=== PATIENT | female | born 1970 | race Caucasian/White ===

== ENCOUNTER → 2016-12-11 | Outpatient (CLI) | payer OTHER ==
[2016-12-11 16:53] LABS: Basophils # (A) 0.1 k/uL (0-0.2); Basophils % (A) 1 %; CH 31.9; CHCM 34.9; Eosinophils # (A) 0.3 k/uL (0-0.7); Eosinophils % (A) 4 %; HCT 40.3 % (34.0-46.0); HGB 14.3 gm/dL (11.4-16.0); Luc # (Auto) 0.17; Luc % (Auto) 2; Lymphocytes # (A) 2.5 k/uL (1.0-4.8); Lymphocytes % (A) 33 %; MCH 32.5 pg (25.0-35.0); MCHC 35.4 g/dL (31.0-37.0); MCV 91.7 fL (80.0-100.0); Mean Platelet Volume 7.2; Monocytes # (A) 0.3 k/uL (0-1.0); Monocytes % (A) 4 %; Neutrophils # (A) 4.4 k/uL (1.3-7.7); Neutrophils % (A) 56 %; RBC 4.39 m/uL (3.80-5.40); RDW 13.3 % (11.5-15.5); WBC 7.8 k/uL (3.8-10.6); WBC (Perox) 8.34
== END | disposition home or self-care (01) ==
LOC: LABPAT 16:37
PROVIDERS: ATTEND Obstetrics & Gynecology
DX: Z01.812 Encounter for preprocedural laboratory examination (principal)
CPT/HCPCS: 36415; 85025

== ENCOUNTER 2017-12-20 10:10 | Emergency (ER) | payer BC ==
[2017-12-20] MEDS ORDERED: SODIUM CHLORIDE 0.9% 500 ML IV STA (10:58)
--- NOTE | 2017-12-20 11:01 | ED ---
General Adult HPI - General Chief complaint: Urogenital Stated complaint: UTI Time Seen by Provider: 12/20/17 10:20 Source: patient, RN notes reviewed Mode of arrival: ambulatory Limitations: no limitations - History of Present Illness Initial comments: This is a 47 her female presents emergency Department complaining of suprapubic pubic abdominal cramping. Patient also states she has hematuria. Patient states she was diagnosed with UTI on Wednesday and given Bactrim patient has been taking the Bactrim since. Patient states the symptoms have not improved. Patient states she also has some lower abdominal pain. Patient denies any CVA tenderness. Patient denies any fever chills or cough. Patient denies any injury or trauma. Patient denies any chest pain difficulty breathing shortness breath. Patient denies any other symptoms at this time. - Related Data Home Medications Medication Instructions Recorded Confirmed ALPRAZolam [Xanax] 0.25 mg PO BID PRN 12/20/17 12/20/17 SUMAtriptan SUCCINATE [Imitrex] 100 mg PO DAILY PRN 12/20/17 12/20/17 Sulfamethox-Tmp 800-160Mg [Bactrim 1 tab PO Q12H 12/20/17 12/20/17 DS 800-160 mg] Topiramate [Topamax] 25 mg PO DAILY 12/20/17 12/20/17 Previous Rx's Medication Instructions Recorded Fluconazole [Diflucan] 150 mg PO ONCE #10 tab 12/20/17 Nitrofurantoin Monohyd/M-Cryst 100 mg PO Q12HR #14 cap 12/20/17 [Macrobid] Allergies Allergy/AdvReac Type Severity Reaction Status Date / Time latex Allergy Itching Verified 12/20/17 10:31 Review of Systems ROS Statement: Those systems with pertinent positive or pertinent negative responses have been documented in the HPI. ROS Other: All systems not noted in ROS Statement are negative. Past Medical History Past Medical History: No Reported History History of Any Multi-Drug Resistant Organisms: None Reported Past Surgical History: Breast Surgery, Orthopedic Surgery Additional Past Surgical History / Comment(s): STATES BREAST REDUCTION AND IMPLANTS, "TUMMY TUCK", KNEE ARTHROSCOPY Past Anesthesia/Blood Transfusion Reactions: No Reported Reaction Past Psychological History: No Psychological Hx Reported Smoking Status: Never smoker Past Alcohol Use History: None Reported, Rare Past Drug Use History: None Reported - Past Family History Mother Family Medical History: Cancer Additional Family Medical History / Comment(s): LUNG General Exam - General Exam Comments Initial Comments: GENERAL: Patient is well-developed and well-nourished. Patient is nontoxic and well- hydrated and is in mild distress. ENT: Neck is soft and supple. No significant lymphadenopathy is noted. Oropharynx is clear. Moist mucous membranes. Neck has full range of motion without eliciting any pain. EYES: The sclera were anicteric and conjunctiva were pink and moist. Extraocular movements were intact and pupils were equal round and reactive to light. Eyelids were unremarkable. PULMONARY: Unlabored respirations. Good breath sounds bilaterally. No audible rales rhonchi or wheezing was noted. CARDIOVASCULAR: There is a regular rate and rhythm without any murmurs gallops or rubs. ABDOMEN: Suprapubic abdominal tenderness greater on the right than the left. No palpable organomegaly was noted. There is no palpable pulsatile mass. SKIN: Skin is clear with no lesions or rashes and otherwise unremarkable. NEUROLOGIC: Patient is alert and oriented x3. Cranial nerves II through XII are grossly intact. Motor and sensory are also intact. Normal speech, volume and content. Symmetrical smile. MUSCULOSKELETAL: Normal extremities with adequate strength and full range of motion. No lower extremity swelling or edema. No calf tenderness. LYMPHATICS: No significant lymphadenopathy is noted PSYCHIATRIC: Normal psychiatric evaluation. Limitations: no limitations Course Vital Signs 12/20/17 12/20/17 12/20/17 10:21 11:36 12:58 Temperature 97.9 F 98.2 F Pulse Rate 85 77 Respiratory 16 16 16 Rate Blood Pressure 122/83 125/78 O2 Sat by Pulse 98 98 Oximetry Medical Decision Making - Medical Decision Making Computed tomography scan shows no acute abnormality to explain the patient's pain. Patient received 2 g of Rocephin emergency department because the urine did have moderate bacteria and the patient was already diagnosed with a urinary tract infection prior to arrival. We did do a urine culture. - Lab Data Result diagrams: 12/20/17 11:40 12/20/17 11:40 Lab Results 12/20/17 12/20/17 12/20/17 Range/Units 11:40 11:40 11:40 WBC 8.4 (3.8-10.6) k/uL RBC 5.07 (3.80-5.40) m/uL Hgb 15.6 (11.4-16.0) gm/dL Hct 45.7 (34.0-46.0) % MCV 90.1 (80.0-100.0) fL MCH 30.8 (25.0-35.0) pg MCHC 34.1 (31.0-37.0) g/dL RDW 13.0 (11.5-15.5) % Plt Count 282 (150-450) k/uL Neutrophils % 63 % Lymphocytes % 27 % Monocytes % 5 % Eosinophils % 3 % Basophils % 1 % Neutrophils # 5.3 (1.3-7.7) k/uL Lymphocytes # 2.2 (1.0-4.8) k/uL Monocytes # 0.4 (0-1.0) k/uL Eosinophils # 0.2 (0-0.7) k/uL Basophils # 0.0 (0-0.2) k/uL Sodium 140 (137-145) mmol/L Potassium 4.9 (3.5-5.1) mmol/L Chloride 106 (98-107) mmol/L Carbon Dioxide 21 L (22-30) mmol/L Anion Gap 13 mmol/L BUN 20 H (7-17) mg/dL Creatinine 1.24 H (0.52-1.04) mg/dL Est GFR (CKD-EPI)AfAm 60 (>60 ml/min/1.73 sqM) Est GFR (CKD-EPI)NonAf 52 (>60 ml/min/1.73 sqM) Glucose 107 H (74-99) mg/dL Calcium 10.9 H (8.4-10.2) mg/dL Total Bilirubin 0.6 (0.2-1.3) mg/dL AST 22 (14-36) U/L ALT 30 (9-52) U/L Alkaline Phosphatase 104 (38-126) U/L Total Protein 7.4 (6.3-8.2) g/dL Albumin 4.4 (3.5-5.0) g/dL Urine Color Yellow Urine Appearance Cloudy H (Clear) Urine pH 5.5 (5.0-8.0) Ur Specific R[place] 1.019 (1.001-1.035) Urine Protein Trace H (Negative) Urine Glucose (UA) Negative (Negative) Urine Ketones Negative (Negative) Urine Blood Large H (Negative) Urine Nitrite Negative (Negative) Urine Bilirubin Negative (Negative) Urine Urobilinogen <2.0 (<2.0) mg/dL Ur Leukocyte Esterase Small H (Negative) Urine RBC 106 H (0-5) /hpf Urine WBC 11 H (0-5) /hpf Ur Squamous Epith Cells 12 H (0-4) /hpf Urine Bacteria Moderate H (None) /hpf Urine Mucus Rare H (None) /hpf Urine HCG, Qual (Not Detectd) 12/20/17 Range/Units 11:40 WBC (3.8-10.6) k/uL RBC (3.80-5.40) m/uL Hgb (11.4-16.0) gm/dL Hct (34.0-46.0) % MCV (80.0-100.0) fL MCH (25.0-35.0) pg MCHC (31.0-37.0) g/dL RDW (11.5-15.5) % Plt Count (150-450) k/uL Neutrophils % % Lymphocytes % % Monocytes % % Eosinophils % % Basophils % % Neutrophils # (1.3-7.7) k/uL Lymphocytes # (1.0-4.8) k/uL Monocytes # (0-1.0) k/uL Eosinophils # (0-0.7) k/uL Basophils # (0-0.2) k/uL Sodium (137-145) mmol/L Potassium (3.5-5.1) mmol/L Chloride (98-107) mmol/L Carbon Dioxide (22-30) mmol/L Anion Gap mmol/L BUN (7-17) mg/dL Creatinine (0.52-1.04) mg/dL Est GFR (CKD-EPI)AfAm (>60 ml/min/1.73 sqM) Est GFR (CKD-EPI)NonAf (>60 ml/min/1.73 sqM) Glucose (74-99) mg/dL Calcium (8.4-10.2) mg/dL Total Bilirubin (0.2-1.3) mg/dL AST (14-36) U/L ALT (9-52) U/L Alkaline Phosphatase (38-126) U/L Total Protein (6.3-8.2) g/dL Albumin (3.5-5.0) g/dL Urine Color Urine Appearance (Clear) Urine pH (5.0-8.0) Ur Specific R[place] (1.001-1.035) Urine Protein (Negative) Urine Glucose (UA) (Negative) Urine Ketones (Negative) Urine Blood (Negative) Urine Nitrite (Negative) Urine Bilirubin (Negative) Urine Urobilinogen (<2.0) mg/dL Ur Leukocyte Esterase (Negative) Urine RBC (0-5) /hpf Urine WBC (0-5) /hpf Ur Squamous Epith Cells (0-4) /hpf Urine Bacteria (None) /hpf Urine Mucus (None) /hpf Urine HCG, Qual Not Detected (Not Detectd) Disposition Clinical Impression: Hemorrhagic cystitis Disposition: HOME SELF-CARE Condition: Good Instructions: Urinary Tract Infection in Women (ED) Prescriptions: Fluconazole [Diflucan] 150 mg PO ONCE #10 tab Nitrofurantoin Monohyd/M-Cryst [Macrobid] 100 mg PO Q12HR #14 cap Is patient prescribed a controlled substance at d/c from ED?: No Referrals: Leah Ivey MD [Primary Care Provider] - 1-2 days
[2017-12-20 11:49] LABS: Appearance,Urine Cloudy (Clear); Bacteria,Urine Moderate /hpf; Bilirubin,Urine Negative (Negative); Blood,Urine Large (Negative); Color,Urine Yellow; Glucose,Urine (UA) Negative (Negative); Ketones,Urine Negative (Negative); Leukocyte Esterase,Urine Small (Negative); Mucus,Urine Rare /hpf; Nitrite,Urine Negative (Negative); PH, Urine 5.5 (5.0-8.0); Protein,Urine Trace (Negative); RBC,Urine 106 /hpf (0-5); Specific Gravity,Urine 1.019 (1.001-1.035); Squamous Epithelial Cell,Urine 12 /hpf (0-4); Urobilinogen,Urine <2.0 mg/dL (<2.0); WBC,Urine 11 /hpf (0-5)
[2017-12-20 11:52] LABS: Basophils % (A) 1 %; Eosinophils # (A) 0.2 k/uL (0-0.7); Eosinophils % (A) 3 %; HCT 45.7 % (34.0-46.0); HGB 15.6 gm/dL (11.4-16.0); Lymphocytes # (A) 2.2 k/uL (1.0-4.8); Lymphocytes % (A) 27 %; MCH 30.8 pg (25.0-35.0); MCHC 34.1 g/dL (31.0-37.0); MCV 90.1 fL (80.0-100.0); Monocytes # (A) 0.4 k/uL (0-1.0); Monocytes % (A) 5 %; Neutrophils # (A) 5.3 k/uL (1.3-7.7); Neutrophils % (A) 63 %; Platelet Count 282 k/uL (150-450); RBC 5.07 m/uL (3.80-5.40); WBC 8.4 k/uL (3.8-10.6)
[2017-12-20 11:58] LABS: Albumin 4.4 g/dL (3.5-5.0); Calcium 10.9 mg/dL (8.4-10.2); Potassium 4.9 mmol/L (3.5-5.1); Total Bilirubin 0.6 mg/dL (0.2-1.3); Total Protein 7.4 g/dL (6.3-8.2)
--- NOTE | 2017-12-20 12:07 | XR ---
EXAMINATION TYPE: XR KUB DATE OF EXAM: 12/20/2017 11:55 AM CLINICAL HISTORY: Abdominal pain and low back pain for 1.5 weeks. TECHNIQUE: Single upright image of the abdomen is obtained. COMPARISON: None. FINDINGS: Scattered gas is seen in nondilated small bowel loops. Moderate degree of gas and fecal mat erial is seen in nondilated colon. There is no visceromegaly, pneumoperitoneum, or abnormal calcifica tion appreciated. The lung bases are clear and the osseous structures are intact. IMPRESSION: Moderate amount retained colonic stool in an overall nonobstructive bowel gas pattern.
[2017-12-20] MEDS ORDERED: cefTRIAXone 2,000 MG in SODIUM CHLORIDE 0.9% 100 ML IVPB STA (12:29)
[2017-12-20] MEDS ORDERED: cefTRIAXone IN SWFI 2,000 MG/20 ML SYRINGE IVP STA (12:32)
--- NOTE | 2017-12-20 13:40 | CT ---
EXAMINATION TYPE: CT abdomen pelvis w con DATE OF EXAM: 12/20/2017 COMPARISON: NONE HISTORY: 47-year-old female UTI, cramping, constipation, hematuria TECHNIQUE: Contiguous axial scanning of the abdomen and pelvis following administration of 80 ml Isov ue 300 IV contrast. Delayed images through the kidneys and coronal/sagittal reconstructions performe d. CT DLP: 817.7 mGycm Automated exposure control for dose reduction was used. FINDINGS: Bilateral breast implants partially visualized. Mild pectus excavatum. Heart normal size. Lung bases clear without pleural effusion. Tiny hiatal hernia. No focal liver lesion or biliary ductal dilatation. Portal venous system is patent. Gallbladder, adrenal glands, spleen with hilar splenule, and pancreas appear within normal limits. Tiny subcentimeter cortical hypodensity medial upper pole right kidney too small for accurate CT kole acterization, likely a tiny cyst. There is symmetric uptake and excretion of contrast from both kidne ys. No dilated small bowel, free fluid, or free air. No mesenteric or retroperitoneal lymphadenopathy. Appendix not clearly identified. No secondary findings of acute appendicitis. Mild overall stool burden. No pericolonic inflammatory change. Bladder urine distended. Uterus is anteverted. Follicular change and the left ovary. Right ovary is s mall. No abnormal fluid collection in the pelvis or pelvic lymphadenopathy seen. Bones: Facet arthropathy mid to lower lumbar spine with degenerative disc disease L5-S1 and grade 1 a nterolisthesis at L4-L5. IMPRESSION: NO ACUTE INFLAMMATORY PROCESS IDENTIFIED IN THE ABDOMEN OR PELVIS TO EXPLAIN THE PATIENT'S SYMPTOMS. TINY HIATAL HERNIA. FOLLICULAR CHANGE IN THE LEFT OVARY.
[2017-12-20 14:14] VITALS: BP 127/64; PULSE 78; RESP 18; TEMP 98.1
== END 2017-12-20 14:14 | disposition home or self-care (01) ==
LOC: EC 10:10
DX: N30.90 Cystitis, unspecified without hematuria (principal); Z79.899 Other long term (current) drug therapy; Z91.040 Latex allergy status
CPT/HCPCS: 36415; 80053; 85025; 81001; 81025; 87086; 74018; 74177; 99284; 96374; 96361; J0696; Q9967

== ENCOUNTER → 2018-08-12 | Outpatient (CLI) | payer BC ==
--- NOTE | 2018-08-16 10:25 | MM ---
Reason for exam: screening (asymptomatic). Last mammogram was performed 7 years ago. History: Retro-pectoral saline implants in both breasts, 2016. Reductions of both breasts, February 2007. Physical Findings: A clinical breast exam by your physician is recommended on an annual basis and results should be correlated with mammographic findings. MG Screening Mammo Implant/CAD Bilateral CC, MLO, and ID view(s) were taken. Prior study comparison: August 27, 2011, CAD bilateral diagnostic mammogram. September 27, 2007, bilateral diagnostic digital mammog. The breast tissue is heterogeneously dense. This may lower the sensitivity of mammography. Finding #1: There is a 6 mm indistinct oval mass in the lower quadrant, middle position of the left breast. Finding #2: There are typically benign dystrophic, round calcifications in both breasts. Developing asymmetry right breast. New bilateral subpectoral implants. New finding and increase in number of calcifications since August 27, 2011. ASSESSMENT: Incomplete: need additional imaging evaluation, BI-RAD 0 RECOMMENDATION: Special view mammogram of both breasts. If lesion persists on supplemental views, image directed ultrasound is recommended. [facility] will attempt to contact patient to return for supplemental views and ultrasound if indicated.
== END | disposition home or self-care (01) ==
LOC: RADMAMWWP 14:20
PROVIDERS: ATTEND Obstetrics & Gynecology
DX: Z12.31 Encounter for screening mammogram for malignant neoplasm of breast (principal)
CPT/HCPCS: 77067

== ENCOUNTER → 2018-08-24 | Outpatient (CLI) | payer BC ==
--- NOTE | 2018-08-25 08:38 | MM ---
Reason for exam: additional evaluation requested from abnormal screening. Last mammogram was performed less than 1 month ago. History: Retro-pectoral saline implants in both breasts, 2016. Reductions of both breasts, February 2007. Physical Findings: Nurse did not find any significant physical abnormalities on exam. MG Work Up Mamm w CAD BILAT Bilateral spot compression CC, spot compression MLO, and LM view(s) were taken. Prior study comparison: August 12, 2018, bilateral MG screening mammo implant/CAD. August 27, 2011, CAD bilateral diagnostic mammogram. The breast tissue is heterogeneously dense. This may lower the sensitivity of mammography. There are retropectoral saline implants. The 3mm right upper outer quadrant mass at middle depth and 4mm right lower inner quadrant at middle depth mass persists. The left lower inner quadrant mass measures 4mm at middle depth These results were verbally communicated with the patient and result sheet given to the patient on 08/24/18. ASSESSMENT: Incomplete: need additional imaging evaluation, BI-RAD 0 RECOMMENDATION: Ultrasound of both breasts. Left lower inner quadrant and right upper outer and lower inner quadrant.
--- NOTE | 2018-08-25 08:41 | USB ---
Reason for exam: additional evaluation requested from abnormal screening. History: Retro-pectoral saline implants in both breasts, 2016. Reductions of both breasts, February 2007. US Breast Workup Limited TANNER Right limited breast ultrasound including focal area of concern, retroareolar and axilla demonstrates several oval, cystic lesions measuring 6 x 2 x 5mm at 5 o'clock, 3 x 3 x 3mm at 5 o'clock, 3 x 2 x 4mm at 12 o'clock and 3 x 3 x 3mm at 10 o'clock. Left limited breast ultrasound including focal area of concern, retroareolar and axilla demonstrates a 7 x 2 x 6mm oval, cystic lesion at 7 o'clock. These results were verbally communicated with the patient and result sheet given to the patient on 08/24/18. ASSESSMENT: Benign, BI-RAD 2 RECOMMENDATION: Return to routine screening mammogram schedule for both breasts.
== END | disposition home or self-care (01) ==
LOC: RADMAMWWP 14:58
PROVIDERS: ATTEND Obstetrics & Gynecology
DX: R92.8 Other abnormal and inconclusive findings on diagnostic imaging of breast (principal)
CPT/HCPCS: 77066

== ENCOUNTER → 2023-02-18 | Outpatient (CLI) | payer BC ==
--- NOTE | 2023-02-19 09:29 | CT ---
EXAMINATION TYPE: CT facial bones w con DATE OF EXAM: 02/18/2023 COMPARISON: None HISTORY: left nasal blockage, pain CT DLP: 403.7 mGycm CONTRAST: 100 mL of Isovue 300 The paranasal sinuses are examined in the axial plane at 2 mm thick sections. Reconstructed images i n the coronal plane were obtained. There is dental amalgam scatter artifact. No suspicious enhancement is evident. Mucosal thickening is seen in the bilateral maxillary sinuses. Air-fluid levels are present.. Scatte red bilateral ethmoid air cell mucosal thickening is present. The sphenoid sinuses are clear. There is an air-fluid level within the left frontal sinus. Correlate for pansinusitis. The septum is evaluated. There is septal deviation to the left. Small septal spur directed left is a lso present. The ostiomeatal units are obstructed. Mastoid air cells within the field of view are clear. IMPRESSION: 1. Clinical correlation recommended for acute pansinusitis. Sphenoid sinuses may be uninvolved. 2. Obstructed bilateral ostiomeatal units.
== END | disposition home or self-care (01) ==
LOC: RADCTMAIN 12:19
PROVIDERS: ATTEND Otolaryngology
DX: J34.89 Other specified disorders of nose and nasal sinuses (principal); R09.81 Nasal congestion
CPT/HCPCS: 70487; Q9967

== ENCOUNTER → 2023-11-12 | Outpatient (CLI) | payer BC ==
--- NOTE | 2023-11-15 09:52 | MM ---
Reason for Exam: Screening (asymptomatic). Last mammogram was performed 5 year(s) and 2 month(s) ago. Patient History: Menarche at age 14. First Full-Term at age 23. Perimenopausal. 02/2007, Bilateral Reduction. 2015, Bilateral Implants. Risk Values: Elisha 5 year model risk: 0.9%. NCI Lifetime model risk: 7.8%. Prior Study Comparison: 08/27/2011 Bilateral Diagnostic Mammogram, [facility]. 08/12/2018 Bilateral Screening Mammogram, [facility]. 08/24/2018 Bilateral Diagnostic Mammogram, [facility]. Tissue Density: There are scattered areas of fibroglandular density. Findings: Analyzed By CAD. Bilateral breast implants appear intact. Right breast: There is no suspicious group of microcalcifications or new suspicious mass. Left breast: There is no suspicious group of microcalcifications or new suspicious mass. Overall Assessment: Negative, BI-RAD 1 Management: Screening Mammogram of both breasts in [address] [facility] will attempt to contact patient to return for supplemental views and ultrasound if indicated. Patient should continue monthly self-breast exams. A clinical breast exam by your physician is recommended on an annual basis. This exam should not preclude additional follow-up of suspicious palpable abnormalities. Note on Elisha scores and lifetime risk: 1. A Elisha score greater than 3% is considered moderate risk. If this is the case, consider specialist referral to assess eligibility for a risk reducing agent. 2. If overall lifetime risk for the development of breast cancer is 20% or higher, the patient may qualify for future screening with alternating mammogram and breast MRI. Electronically signed and approved by: Allan Garcia DO
== END | disposition home or self-care (01) ==
LOC: RADMAMWWP 09:23
PROVIDERS: ATTEND Family Medicine
DX: Z12.31 Encounter for screening mammogram for malignant neoplasm of breast (principal)
CPT/HCPCS: 77063; 77067